=== PATIENT | female | born 2000 | race Caucasian/White ===

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

== ENCOUNTER → 2021-02-20 | Outpatient (REF) | payer BC ==
[~2021-02-20] MED LIST changes: -PEGPOW; +POLY510P14
[2021-02-20 15:57] LABS: BASO % 0.2 % (0.0-1.0); EOS # 0.1 10^3/uL (0.0-0.5); EOS % 2.3 % (0.0-3.0); HEMATOCRIT 39.4 % (36.0-47.0); HEMOGLOBIN 12.9 g/dl (12.0-15.5); LYMPH # 0.4 10^3/uL (1.5-5.0); MEAN CORPUSCULAR HEMOGLOBIN 29.7 pg (27.0-33.0); MEAN CORPUSCULAR HGB CONC 32.7 g/dl (32.0-36.5); MEAN CORPUSCULAR VOLUME 90.8 fl (80.0-96.0); MONO # 0.9 10^3/uL (0.0-0.8); MONO % 14.3 % (2.0-8.0); NEUTROPHILS # 4.6 10^3/uL (1.5-8.5); NEUTROPHILS % 76.7 % (36.0-66.0); PLATELET COUNT, AUTOMATED 250 10^3/uL (150-450); RED BLOOD COUNT 4.34 10^6/uL (4.00-5.40)
[2021-02-20 16:21] LABS: ALBUMIN 4.2 GM/DL (3.2-5.2); ALT/SGPT 66 U/L (12-78); BILIRUBIN,DIRECT < 0.1 MG/DL (0.0-0.2); BILIRUBIN,TOTAL 0.2 MG/DL (0.2-1.0); TOTAL PROTEIN 6.9 GM/DL (6.4-8.2)
[2021-02-20 16:26] LABS: TOTAL 25(OH) VITAMIN D 25.1 NG/ML (30.0-100.0)
== END ==
LOC: M WUC 15:30
PROVIDERS: ATTEND Nurse Practitioner Pediatrics
DX: G35 Multiple sclerosis (principal)

== ENCOUNTER → 2021-06-25 | Outpatient (REF) ==
--- NOTE | 2021-06-25 11:42 | REP ---
INDICATION: PAIN COMPARISON: 08/09/2016 TECHNIQUE: AP, lateral, coned-down views of the lumbar spine. FINDINGS: Three views of the lumbosacral spine demonstrate satisfactory alignment and lordosis without acute fracture / compression injury or subluxation. IMPRESSION: 1. No acute fracture / compression injury or subluxation. 2. No significant degenerative changes are appreciated. <Electronically signed by Chirag Gleason > 06/25/21 0615
== END ==
LOC: M PLAIMG 10:04
PROVIDERS: ATTEND Internal Medicine
DX: R52 Pain, unspecified (principal)

== ENCOUNTER → 2021-12-02 | Outpatient (CLI) | payer BC ==
[~2021-12-02] MED LIST changes: +FLUO-96 PO; -FLUO20CA20 PO; +ONDA-84 PO; -ONDA8TAB10 PO
[2021-12-02 12:49] LABS: ALBUMIN 4.3 GM/DL (3.2-5.2); ALT/SGPT 39 U/L (12-78); BILIRUBIN,TOTAL 0.2 MG/DL (0.2-1.0); BLOOD UREA NITROGEN 9 MG/DL (7-18); CALCIUM LEVEL 9.5 MG/DL (8.5-10.1); CARBON DIOXIDE LEVEL 31 MEQ/L (21-32); CHLORIDE LEVEL 107 MEQ/L (98-107); CREATININE FOR GFR 0.78 MG/DL (0.55-1.30); GLUCOSE, FASTING 86 MG/DL (70-100); POTASSIUM SERUM 4.2 MEQ/L (3.5-5.1); SODIUM LEVEL 140 MEQ/L (136-145); TOTAL PROTEIN 6.9 GM/DL (6.4-8.2)
[2021-12-02 12:53] LABS: BASO % 0.4 % (0.0-1.0); EOS # 0.1 10^3/uL (0.0-0.5); EOS % 2.2 % (0.0-3.0); HEMATOCRIT 39.9 % (36.0-47.0); HEMOGLOBIN 13.2 g/dl (12.0-15.5); LYMPH # 0.4 10^3/uL (1.5-5.0); LYMPH % 7.9 % (24.0-44.0); MEAN CORPUSCULAR HEMOGLOBIN 28.9 pg (27.0-33.0); MEAN CORPUSCULAR HGB CONC 33.1 g/dl (32.0-36.5); MEAN CORPUSCULAR VOLUME 87.5 fl (80.0-96.0); MONO # 0.7 10^3/uL (0.0-0.8); MONO % 15.6 % (2.0-8.0); NEUTROPHILS # 3.3 10^3/uL (1.5-8.5); NEUTROPHILS % 73.5 % (36.0-66.0); PLATELET COUNT, AUTOMATED 237 10^3/uL (150-450); RED BLOOD COUNT 4.56 10^6/uL (4.00-5.40); WHITE BLOOD COUNT 4.5 10^3/uL (4.0-10.0)
[2021-12-02 12:58] LABS: TOTAL 25(OH) VITAMIN D 41.2 NG/ML (30.0-100.0)
== END ==
LOC: M WUC 09:25
PROVIDERS: ATTEND Psychiatry & Neurology Neurology
DX: G35 Multiple sclerosis (principal)

== ENCOUNTER 2023-11-25 13:43 | Emergency (ER) | payer BC ==
[~2023-11-25] VITALS: Ht 157.5 cm; Wt 65.6 kg
[~2023-11-25 13:43] MED LIST changes: +ERYT-86; -ZONI100C17 PO; +ZONI100C67 PO; -[UNRECOGNIZED DRUG - CODE]
[2023-11-25] MEDS: diazePAM 5MG TABLET PO ONE (15:31)
[2023-11-25] MEDS: KETOROLAC 30 MG/ML 1ML VIAL IM ONE (15:34)
[2023-11-25 15:47] VITALS: BP 124/86; TEMP 97.8; O2SAT 99
== END 2023-11-25 15:54 | disposition home or self-care (01) ==
LOC: M ED 13:43
DX: M62.838 Other muscle spasm (principal); F41.9 Anxiety disorder, unspecified; F32.A Depression, unspecified; Z91.048 Other nonmedicinal substance allergy status; Z79.899 Other long term (current) drug therapy
CPT/HCPCS: 71046; 73030; 80047; 84702; 96372; 99283; J1885

== ENCOUNTER → 2024-01-25 | Outpatient (CLI) | payer BC | LOC: M WUC 13:39 | PROVIDERS: ATTEND Physician Assistant | DX: L85.8 Other specified epidermal thickening (principal) ==

== ENCOUNTER → 2024-01-25 | Outpatient (CLI) | payer BC ==
[2024-01-25 19:04] LABS: ALKALINE PHOSPHATASE 109 U/L (46-116); ALT/SGPT 31 U/L (7.0-40); AST/SGOT 19 U/L (<34); BILIRUBIN,DIRECT < 0.1 MG/DL (<0.4); BILIRUBIN,TOTAL 0.2 MG/DL (0.3-1.2)
[2024-01-25 19:15] LABS: BASO % 0.2 % (0.0-1.0); EOS # 0.1 10^3/uL (0.0-0.5); HEMATOCRIT 40.7 % (36.0-47.0); HEMOGLOBIN 13.3 g/dl (12.0-15.5); LYMPH # 0.2 10^3/uL (1.5-5.0); LYMPH % 3.7 % (24.0-44.0); MEAN CORPUSCULAR HEMOGLOBIN 28.8 pg (27.0-33.0); MEAN CORPUSCULAR HGB CONC 32.7 g/dl (32.0-36.5); MEAN CORPUSCULAR VOLUME 88.1 fl (80.0-96.0); MONO # 0.8 10^3/uL (0.0-0.8); MONO % 14.1 % (2.0-8.0); NEUTROPHILS # 4.4 10^3/uL (1.5-8.5); NEUTROPHILS % 79.8 % (36.0-66.0); PLATELET COUNT, AUTOMATED 255 10^3/uL (150-450); RED BLOOD COUNT 4.62 10^6/uL (4.00-5.40); WHITE BLOOD COUNT 5.5 10^3/uL (4.0-10.0)
== END ==
LOC: M WUC 13:43
PROVIDERS: ATTEND Student in an Organized Health Care Education/Training Program
DX: G35 Multiple sclerosis (principal)

== ENCOUNTER → 2024-03-16 | Outpatient (REF) | payer BC ==
[2024-03-16 11:47] LABS: BASO % 0.2 % (0.0-1.0); EOS # 0.1 10^3/uL (0.0-0.5); EOS % 2.2 % (0.0-3.0); HEMATOCRIT 38.7 % (36.0-47.0); HEMOGLOBIN 12.9 g/dl (12.0-15.5); LYMPH # 0.3 10^3/uL (1.5-5.0); LYMPH % 4.9 % (24.0-44.0); MEAN CORPUSCULAR HEMOGLOBIN 29.3 pg (27.0-33.0); MEAN CORPUSCULAR HGB CONC 33.3 g/dl (32.0-36.5); MEAN CORPUSCULAR VOLUME 87.8 fl (80.0-96.0); MONO # 0.7 10^3/uL (0.0-0.8); MONO % 14.6 % (2.0-8.0); NEUTROPHILS % 77.7 % (36.0-66.0); PLATELET COUNT, AUTOMATED 237 10^3/uL (150-450); RED BLOOD COUNT 4.41 10^6/uL (4.00-5.40); WHITE BLOOD COUNT 5.1 10^3/uL (4.0-10.0)
== END ==
LOC: M LABWUC 11:08
PROVIDERS: ATTEND Student in an Organized Health Care Education/Training Program
DX: G35 Multiple sclerosis (principal)

== ENCOUNTER → 2024-04-03 | Outpatient (REF) | payer BC ==
[2024-04-03 20:34] LABS: BASO % 0.3 % (0.0-1.0); EOS # 0.1 10^3/uL (0.0-0.5); EOS % 1.6 % (0.0-3.0); HEMATOCRIT 38.9 % (36.0-47.0); HEMOGLOBIN 12.8 g/dl (12.0-15.5); LYMPH # 0.2 10^3/uL (1.5-5.0); LYMPH % 3.1 % (24.0-44.0); MEAN CORPUSCULAR HEMOGLOBIN 29.2 pg (27.0-33.0); MEAN CORPUSCULAR HGB CONC 32.9 g/dl (32.0-36.5); MEAN CORPUSCULAR VOLUME 88.8 fl (80.0-96.0); MONO # 0.8 10^3/uL (0.0-0.8); NEUTROPHILS # 5.6 10^3/uL (1.5-8.5); NEUTROPHILS % 82.9 % (36.0-66.0); PLATELET COUNT, AUTOMATED 267 10^3/uL (150-450); RED BLOOD COUNT 4.38 10^6/uL (4.00-5.40); WHITE BLOOD COUNT 6.8 10^3/uL (4.0-10.0)
[2024-04-03 20:59] LABS: ALBUMIN 4.3 G/DL (3.2-5.2); ALKALINE PHOSPHATASE 105 U/L (46-116); ALT/SGPT 34 U/L (7.0-40); AST/SGOT 20 U/L (<34); BILIRUBIN,DIRECT < 0.1 MG/DL (<0.4); BILIRUBIN,TOTAL 0.2 MG/DL (0.3-1.2); TOTAL PROTEIN 6.9 G/DL (5.7-8.2)
[2024-04-03 21:01] LABS: THYROID STIMULATING HORMONE 1.311 uIU/ML (0.55-4.78)
[2024-04-03 21:02] LABS: TOTAL 25(OH) VITAMIN D 46.5 NG/ML (20.0-100.0); VITAMIN B12 LEVEL 324 PG/ML (211-911)
== END ==
LOC: M LAB REF 20:17 → M LABWUC 20:17
PROVIDERS: ATTEND Student in an Organized Health Care Education/Training Program
DX: R53.83 Other fatigue (principal); R79.89 Other specified abnormal findings of blood chemistry; G35 Multiple sclerosis

== ENCOUNTER → 2024-06-11 | Outpatient (REF) | payer BC, OTHER ==
[2024-06-11 18:08] LABS: EOSINOPHILS 1 % (0-3); LYMPHOCYTES 9 % (16-44); MONOCYTES 11 % (0-5); NEUTROPHILS 79 % (28-66); PLATELET ESTIMATE NORMAL (NORMAL)
[2024-06-11 18:50] LABS: PERCENT SATURATION 8.2 % (13.2-45.0)
[2024-06-11 18:54] LABS: FERRITIN 15.6 NG/ML (7.3-270.7)
== END ==
LOC: M LAB REF 16:28
PROVIDERS: ATTEND Internal Medicine
DX: Z00.01 Encounter for general adult medical examination with abnormal findings (principal); G35 Multiple sclerosis; D72.9 Disorder of white blood cells, unspecified; R23.1 Pallor

== ENCOUNTER 2024-10-28 08:46 | Emergency (ER) | payer BC, OTHER ==
[~2024-10-28] VITALS: Ht 157.5 cm; Wt 68.5 kg
[~2024-10-28 08:46] MED LIST changes: -CYPR4TA PO; +CYPR4TAB36 PO; +GABA-1172 PO; -GABA-282 PO
[2024-10-28] MEDS: NS (Normal Saline) 0.9% 1,000 ML IV ONE (09:25)
[2024-10-28] MEDS: METOCLOPRAMIDE INJ 10MG/2ML VIAL IV ONE (09:25)
[2024-10-28 09:30] LABS: BASO % 0.1 % (0.0-1.0); EOS # 0.1 10^3/uL (0.0-0.5); EOS % 1.5 % (0.0-3.0); HEMATOCRIT 38.2 % (36.0-47.0); HEMOGLOBIN 12.6 g/dl (12.0-15.5); LYMPH # 0.4 10^3/uL (1.5-5.0); LYMPH % 4.1 % (24.0-44.0); MEAN CORPUSCULAR HEMOGLOBIN 28.4 pg (27.0-33.0); MEAN CORPUSCULAR VOLUME 86.2 fl (80.0-96.0); MONO # 0.9 10^3/uL (0.0-0.8); MONO % 10.3 % (2.0-8.0); NEUTROPHILS # 7.6 10^3/uL (1.5-8.5); NEUTROPHILS % 83.5 % (36.0-66.0); PLATELET COUNT, AUTOMATED 308 10^3/uL (150-450); RED BLOOD COUNT 4.43 10^6/uL (4.00-5.40); WHITE BLOOD COUNT 9.1 10^3/uL (4.0-10.0)
[2024-10-28 09:54] LABS: ETHYL ALCOHOL (ETHANOL) < 0.003 % (0.000-0.010); LIPASE 56 U/L (12-53)
[2024-10-28 09:56] LABS: ALBUMIN 3.9 G/DL (3.2-5.2); ALKALINE PHOSPHATASE 103 U/L (35-104); ALT/SGPT 31 U/L (7.0-40); AST/SGOT 24 U/L (<34); BILIRUBIN,DIRECT < 0.1 MG/DL (<0.4); BILIRUBIN,TOTAL 0.2 MG/DL (0.3-1.2); BLOOD UREA NITROGEN 10 MG/DL (9-23); CALCIUM LEVEL 9.7 MG/DL (8.5-10.1); CARBON DIOXIDE LEVEL 24 MMOL/L (20-31); CHLORIDE LEVEL 106 MMOL/L (98-107); CREATININE FOR GFR 0.54 MG/DL (0.55-1.30); GLOMERULAR FILTRATION RATE > 60.0 (>60); GLUCOSE, FASTING 102 MG/DL (60-100); POTASSIUM SERUM 4.7 MMOL/L (3.5-5.1); SODIUM LEVEL 140 MMOL/L (136-145)
[2024-10-28 09:57] LABS: HCG, SERUM QUALITATIVE POSITIVE (NEGATIVE)
[2024-10-28 11:01] LABS: HCG, SERUM QUANTITATIVE 91461.9 MIU/ML (<4.2)
[2024-10-28] MEDS ORDERED: LAMI1TAB9 PO (11:38)
[2024-10-28 11:45] VITALS: BP 145/83
[2024-10-28 11:46] VITALS: TEMP 97.3; O2SAT 98
== END 2024-10-28 11:55 | disposition home or self-care (01) ==
LOC: M ED 08:46
DX: G40.909 Epilepsy, unspecified, not intractable, without status epilepticus (principal); Z33.1 Pregnant state, incidental; R00.0 Tachycardia, unspecified; G35 Multiple sclerosis; F41.9 Anxiety disorder, unspecified; F32.A Depression, unspecified; Z91.048 Other nonmedicinal substance allergy status; Z79.899 Other long term (current) drug therapy
CPT/HCPCS: 80048; 80076; 80175; 82077; 83690; 84702; 84703; 85025; 93005; 93041; 96361; 96374; 99285; J2765

== ENCOUNTER → 2024-11-12 | Outpatient (REF) | payer BC, OTHER ==
[~2024-11-12] MED LIST changes: +LAMI1TAB9 PO
== END ==
LOC: M LAB REF 16:20
PROVIDERS: ATTEND Internal Medicine
DX: Z33.1 Pregnant state, incidental (principal)

== ENCOUNTER → 2024-11-23 | Outpatient (REF) | payer BC | LOC: M PLALAB 14:57 | PROVIDERS: ATTEND Advanced Practice Midwife | DX: Z53.9 Procedure and treatment not carried out, unspecified reason (principal) ==

== ENCOUNTER → 2024-11-26 | Outpatient (CLI) | payer BC ==
[2024-11-26 19:22] LABS: HEMATOCRIT 37.3 % (36.0-47.0); HEMOGLOBIN 12.7 g/dl (12.0-15.5); MEAN CORPUSCULAR HEMOGLOBIN 28.8 pg (27.0-33.0); MEAN CORPUSCULAR VOLUME 84.6 fl (80.0-96.0); PLATELET COUNT, AUTOMATED 320 10^3/uL (150-450); RED BLOOD COUNT 4.41 10^6/uL (4.00-5.40); WHITE BLOOD COUNT 11.2 10^3/uL (4.0-10.0)
[2024-11-26 19:45] LABS: GC DNA AMPLIFICATION NEGATIVE (NEGATIVE)
[2024-11-26 20:00] LABS: HIV 1&2 SCREEN NEGATIVE (NEGATIVE)
[2024-11-26 20:08] LABS: HEPATITIS C VIRUS ABY INDEX 0.02 INDEX (<0.8)
[2024-11-28 17:10] LABS: Trichomonas vaginalis (AMP) NOT DETECTED (NEGATIVE)
== END ==
LOC: M PLALAB 14:42
PROVIDERS: ATTEND Advanced Practice Midwife
DX: Z34.01 Encounter for supervision of normal first pregnancy, first trimester (principal)

== ENCOUNTER → 2024-11-26 | Outpatient (CLI) | payer BC | LOC: M WUC 14:01 | PROVIDERS: ATTEND Student in an Organized Health Care Education/Training Program | DX: G40.909 Epilepsy, unspecified, not intractable, without status epilepticus (principal) ==

== ENCOUNTER → 2025-01-02 | Outpatient (CLI) | payer BC | LOC: M WUC 14:59 | PROVIDERS: ATTEND Student in an Organized Health Care Education/Training Program | DX: G40.909 Epilepsy, unspecified, not intractable, without status epilepticus (principal) ==

== ENCOUNTER → 2025-01-21 | Outpatient (CLI) | payer MEDICARE, BC | LOC: M RAD 08:06 | PROVIDERS: ATTEND Obstetrics & Gynecology | DX: Z34.92 Encounter for supervision of normal pregnancy, unspecified, second trimester (principal); Z3A.19 19 weeks gestation of pregnancy ==

== ENCOUNTER → 2025-03-18 | Outpatient (CLI) | payer BC, MEDICARE ==
[2025-03-18 13:39] LABS: HEMATOCRIT 34.9 % (36.0-47.0); HEMOGLOBIN 11.4 g/dl (12.0-15.5); MEAN CORPUSCULAR HEMOGLOBIN 29.5 pg (27.0-33.0); MEAN CORPUSCULAR HGB CONC 32.7 g/dl (32.0-36.5); MEAN CORPUSCULAR VOLUME 90.4 fl (80.0-96.0); PLATELET COUNT, AUTOMATED 285 10^3/uL (150-450); RED BLOOD COUNT 3.86 10^6/uL (4.00-5.40); WHITE BLOOD COUNT 12.5 10^3/uL (4.0-10.0)
[2025-03-18 14:06] LABS: GLUCOSE CHALLENGE TEST 1 HOUR 93 MG/DL (LESS THAN 140)
[2025-03-18 14:41] LABS: HIV 1&2 SCREEN NEGATIVE (NEGATIVE)
[2025-03-18 14:49] LABS: HEPATITIS C VIRUS ABY INDEX 0.02 INDEX (<0.8)
[2025-03-18 14:58] LABS: Trichomonas vaginalis (AMP) NOT DETECTED (NEGATIVE)
[2025-03-18 15:21] LABS: GC DNA AMPLIFICATION NEGATIVE (NEGATIVE)
== END ==
LOC: M PLALAB 08:47
PROVIDERS: ATTEND Advanced Practice Midwife
DX: Z34.02 Encounter for supervision of normal first pregnancy, second trimester (principal)

== ENCOUNTER → 2025-05-02 | Outpatient (CLI) | payer MEDICARE, BC, MEDICAID ==
[~2025-05-02] MED LIST changes: +MAG100TA PO; +PREN1TAB11 PO
== END ==
LOC: M WUC 10:54
PROVIDERS: ATTEND Student in an Organized Health Care Education/Training Program
DX: G40.909 Epilepsy, unspecified, not intractable, without status epilepticus (principal)

== ENCOUNTER 2025-05-04 12:15 | Emergency (ER) | payer MEDICARE, BC, MEDICAID ==
[~2025-05-04] VITALS: Ht 157.5 cm; Wt 77.6 kg
[~2025-05-04 12:15] MED LIST changes: -MAG100TA PO; -PREN1TAB11 PO
[2025-05-04 12:19] VITALS: BP 130/75; TEMP 97.7; O2SAT 98
[2025-05-04] MEDS ORDERED: MAG100TA PO (12:49)
[2025-05-04] MEDS ORDERED: CYPR4TAB36 PO (12:49)
[2025-05-04] MEDS ORDERED: PREN1TAB11 PO (12:49)
== END 2025-05-04 12:31 | disposition admitted as inpatient to this hospital (09) ==
LOC: M ED 12:15
DX: Z53.21 Procedure and treatment not carried out due to patient leaving prior to being seen by health care provider (principal)

== ENCOUNTER 2025-05-04 12:26 | Outpatient (CLI) | payer BC, MEDICARE, MEDICAID ==
[~2025-05-04] VITALS: Ht 157.5 cm; Wt 77.9 kg
[2025-05-04] MEDS ORDERED: PREN1TAB11 PO (12:49)
[2025-05-04] MEDS ORDERED: CYPR4TAB36 PO (12:49)
[2025-05-04] MEDS ORDERED: MAG100TA PO (12:49)
[2025-05-04 12:55] VITALS: BP 117/72; O2SAT 94
[2025-05-04] MEDS ORDERED: HOME MED LIST COMPLETE! XX SCH (13:00)
[2025-05-04 14:02] VITALS: BP 103/68
[2025-05-04 14:13] LABS: PLATELET COUNT, AUTOMATED 289 10^3/uL (150-450)
[2025-05-04 14:16] LABS: APPEARANCE, URINE HAZY (CLEAR); BACTERIA, URINE AUTO NEGATIVE (NEGATIVE); BILIRUBIN, URINE AUTO NEGATIVE (NEGATIVE); BLOOD, URINE BLOOD NEGATIVE (NEGATIVE); GLUCOSE, URINE (UA) AUTO NEGATIVE (NEGATIVE); KETONE, URINE AUTO 1+ mg/dL (NEGATIVE); LEUKOCYTE ESTERASE, URINE AUTO NEGATIVE (NEGATIVE); MUCUS, URINE SMALL (NEGATIVE); NITRITE, URINE AUTO NEGATIVE (NEGATIVE); PROTEIN, URINE AUTO 1+ mg/dL (NEGATIVE); RBC, URINE AUTO 0 /HPF (0-3); SPECIFIC GRAVITY URINE AUTO 1.024 (1.002-1.035); SQUAMOUS EPITHELIAL CELL UR AU 9 /HPF (0-6); UROBILINOGEN, URINE AUTO 0.2 mg/dL (0.0-2.0); WBC, URINE AUTO 2 /HPF (0-3)
[2025-05-04] MEDS: ONDANSETRON 4MG 2ML VIAL IV ONE (14:24)
[2025-05-04 14:40] LABS: ALT/SGPT 22 U/L (7.0-40); AST/SGOT 24 U/L (<34); CALCIUM LEVEL 9.7 MG/DL (8.5-10.1); CARBON DIOXIDE LEVEL 21 MMOL/L (20-31); CHLORIDE LEVEL 107 MMOL/L (98-107); CREATININE FOR GFR 0.42 MG/DL (0.55-1.30); GLOMERULAR FILTRATION RATE > 90.0 (>60); POTASSIUM SERUM 4.4 MMOL/L (3.5-5.1); SODIUM LEVEL 141 MMOL/L (136-145)
[2025-05-04] MEDS ORDERED: ONDANSETRON 4MG TAB PO PRN (19:00)
[2025-05-28] MEDS ORDERED: LAMO100T3 PO (13:57)
[2025-05-28] MEDS ORDERED: FOLI1TAB11 PO (13:57)
[2025-05-28] MEDS ORDERED: ASPI81TA26 PO (13:57)
[2025-05-28] MEDS ORDERED: LAMO150T3 PO (13:57)
[2025-05-28] MEDS ORDERED: RITU10VLL IV (14:00)
[2025-05-28] MEDS ORDERED: CLON0.5T17 PO (14:11)
== END 2025-05-04 15:05 | disposition home or self-care (01) ==
LOC: M LDO 12:26
PROVIDERS: ATTEND Obstetrics & Gynecology
DX: O21.8 Other vomiting complicating pregnancy (principal); O99.353 Diseases of the nervous system complicating pregnancy, third trimester; R19.7 Diarrhea, unspecified; G35 Multiple sclerosis; Z3A.33 33 weeks gestation of pregnancy
CPT/HCPCS: 59025; 80053; 81001; 82150; 83690; 85027; 87086; 96374; G0463; J2405

== ENCOUNTER → 2025-05-21 | Outpatient (REF) | payer MEDICARE, BC, MEDICAID ==
[~2025-05-21] MED LIST changes: +MAG100TA PO; +PREN1TAB11 PO
== END ==
LOC: M SFHCWAGY 10:17
PROVIDERS: ATTEND Advanced Practice Midwife
DX: Z34.03 Encounter for supervision of normal first pregnancy, third trimester (principal)

== ENCOUNTER → 2025-05-29 | Outpatient (CLI) | payer BC, MEDICARE, MEDICAID ==
[~2025-05-29] MED LIST changes: +ASPI81TA26 PO; +CLON0.5T17 PO; +FOLI1TAB11 PO; +LAMO100T3 PO; +LAMO150T3 PO; +RITU10VLL IV
== END ==
LOC: M RAD 11:43
PROVIDERS: ATTEND Obstetrics & Gynecology
DX: O99.353 Diseases of the nervous system complicating pregnancy, third trimester (principal); G35 Multiple sclerosis; Z36.2 Encounter for other antenatal screening follow-up; Z3A.38 38 weeks gestation of pregnancy

== ENCOUNTER → 2025-09-04 | Outpatient (REF) | payer MEDICARE, BC, MEDICAID ==
[2025-09-06 13:56] LABS: HPV APTIMA Not Detected (Not Detected)
== END ==
LOC: M SFHCWAGY 13:38
PROVIDERS: ATTEND Obstetrics & Gynecology
DX: Z12.4 Encounter for screening for malignant neoplasm of cervix (principal); Z77.9 Other contact with and (suspected) exposures hazardous to health
CPT/HCPCS: 87624; G0123